=== PATIENT | male | born 1965 | race Caucasian/White ===

== ENCOUNTER 2025-03-31 05:48 | Day surgery (SDC) | payer OTHER ==
[~2025-03-31] VITALS: Ht 175.3 cm; Wt 84.0 kg
[~2025-03-31 05:48] MED LIST: LACTATED RINGER'S 1,000 ML IV SCH
[2025-03-31 06:03] VITALS: BP 132/89
[2025-03-31] MEDS ORDERED: LIDOCAINE HCL 1% 5 ML SDV INJ ONE (07:00)
[2025-03-31] MEDS ORDERED: HEParin SOD (PORCINE) 5,000 UNIT/ML SDV SUB-Q SCH (07:00)
[2025-03-31] MEDS ORDERED: CEFAZOLIN SODIUM 2 GM in SODIUM CHLORIDE 0.9% 100 ML IV SCH (07:00)
[2025-03-31] MEDS ORDERED: IBLOOD GLUCOSE TEST STRIP 1 EA TEST VI PRN ×2 (07:00→09:30)
[2025-03-31] MEDS ORDERED: LIDOCAINE HCL 2% 5 ML SDV ONE (07:05)
[2025-03-31] MEDS ORDERED: LIDOCAINE HCL 1% 30 ML SDV ONE (07:05)
[2025-03-31] MEDS ORDERED: DEXAMETHASONE SOD PHOS 4 MG/ML VIAL ONE (07:05)
[2025-03-31] MEDS ORDERED: KETOROLAC TROMETHAMINE 30 MG/ML VIAL ONE (07:05)
[2025-03-31] MEDS ORDERED: LIDOCAINE HCL 4% 5 ML AMP ONE (07:06)
[2025-03-31] MEDS ORDERED: fentaNYL citrate 100 MCG/2 ML VIAL ONE ×2 (07:09→08:51)
[2025-03-31] MEDS ORDERED: MIDAZOLAM HCL 2 MG/2 ML VIAL ONE (07:10)
[2025-03-31] MEDS ORDERED: SUGAMMADEX SODIUM 200 MG/2 ML ML ONE (07:16)
[2025-03-31] MEDS ORDERED: ROCURONIUM BROMIDE 50 MG/5 ML SYR ONE (07:16)
[2025-03-31] MEDS ORDERED: ACETAMINOPHEN 1,000 MG/100 ML VIAL ONE (07:53)
[2025-03-31] MEDS ORDERED: LACTATED RINGER'S 1,000 ML IV ONE (08:02)
--- NOTE | 2025-03-31 09:25 | NUR ---
03/31/25 0925 Abelardo,Angeline 0917 PT ARRIVED TO PACU ON 6L VIA MASK, WITH ORAL AIRWAY IN PLACE. RESP EVEN AND UNLABORED. SMALL CHIN LIFT USED TO MAINTAIN AIRWAY, PT HEAD MOVED TO THE SIDE AND CHIN LIFT NO LONGER NEEDED.
[2025-03-31] MEDS ORDERED: OXYCODONE/APAP 7.5/325 TAB PO PRN (09:30)
[2025-03-31] MEDS ORDERED: NALOXONE HCL 0.4 MG SYR IV PRN ×2 (09:30)
[2025-03-31] MEDS ORDERED: ACETAMINOPHEN 500 MG TAB PO PRN (09:30)
[2025-03-31] MEDS ORDERED: MOTRIN IB200 MG PO (09:30)
[2025-03-31] MEDS ORDERED: IBUPROFEN 600 MG TAB PO PRN (09:30)
[2025-03-31] MEDS ORDERED: TYLENOL EXTRA500 MG PO (09:30)
[2025-03-31] MEDS ORDERED: LACTATED RINGER'S 1,000 ML IV SCH (09:30)
[2025-03-31] MEDS ORDERED: fentaNYL citrate 50 MCG/ML SDV IV PRN (09:30)
[2025-03-31] MEDS ORDERED: PERCOCET 7.5-31 EACH PO (09:31)
[2025-03-31 09:55] VITALS: BP 140/76
--- NOTE | 2025-03-31 10:13 | NUR ---
0955-PT ARRIVED BACK TO DS ON RA, AAOX3, ANSWERING QUETIONS APPROPRIATELY, AND ABLE TO MAKE HIS NEEDS KNOWN. VS TAKEN. IV SITE ASSESSED. SURGICAL SITE VISUALIZED WITH MOLD BURNER AND REPORT RECIEVED FROM MOLD BURNER. PT REPORTS PAIN 4-5/10 AT SURGICAL SITE. PT REPORTS TOLERABLE AT THIS TIME, BUT GETTING CLOSE TO INTOLERABLE. PT DENIES NAUSEA WHEN ASKED. PTS FRIEND IN ROOM AT BEDSIDE. PT PROVIDED WITH ICE WATER AND APPLESAUCE. PT VERBALIZES URGE TO VOID. PT PROVIDED WITH URINAL. 1005-PT ABLE TO VOID APPROX 500 ML OF CLR, PALE YELLOW URINE. PT TOLERATING PO FOOD AND FLUIDS WELL THUS FAR W/O ISSUES REPORTED OR NOTED. 1013-PT GIVEN PO PAIN MEDS PER EMAR. CALL LIGHT WITHIN PT REACH. BED IN LOW POSITION, WHEELS LOCKED, BILAT RAILS IN PLACE FOR SAFETY.
[2025-03-31 10:58] VITALS: BP 133/88
--- NOTE | 2025-03-31 11:10 | NUR ---
1055-INTO PTS ROOM FOR ROUTINE REASSESSMENT. VS TAKEN. IV SITE ASSESSED AND REMOVED. TIP APPEARS INTACT. PRESSURE DRSG APPLIED WITH GAUZE AND COBAN. SURGICAL SITE VISUALIZED. NO ACUTE CHANGES NOTED FROM INITIAL ASSESSMENT. PT REPORTS IMPROVEMENT IN PAIN AT SURGICAL SITE AND RATES PAIN AT 4/10 WHICH HE REPORTS TO BE TOLERABLE. PT DENIES NAUSEA WHEN ASKED. PT HAS TOLERATED PO FOOD AND FLUIDS W/O ISSUES. PT DRESSING FOR DISCHARGE WITH FRIENDS ASSISTANCE. 1105-PT WITH REPORT OF NEED TO USE RESTROOM. PT EDUCATED ON USE OF HAND FOR COUNTER SUPPORT TO INCISION SITE WITH POSITION CHANGES. PT VERBALIZES AND DEMONSTRATES UNDERSTANDING. PT AMBULATED TO RESTROOM WITH RN SUPERVISION FOR SAFETY. 1110-PT PROVIDED WITH VERBAL AND WRITTEN DISCHARGE EDUCATION. PTS FRIEND PRESENT FOR DISCHARGE EDUCATION. ALL QUESTIONS ANSWERED. HARDCOPY RX GIVEN FOR PAIN MEDICATION. PT VERBALIZES UNDERSTANDING. PTS FRIEND LEFT TO PULL CAR AROUND TO FRONT FOR DISCHARGE.
--- NOTE | 2025-03-31 11:15 | NUR ---
PT DISCHARGED FROM DS TO PASSENGER SIDE OF FRIENDS VEHICLE. PT LEFT WITH ALL PERSONAL BELONGINGS.
[2025-03-31] MEDS ORDERED: SEVOFLURANE 250 ML BTL INH ONE (15:09)
--- NOTE | 2025-03-31 18:26 | OR ---
[facility] [address], [place] [address] Signed DATE OF OPERATION: 03/31/2025 SURGEON: Amber Franco MD PREOPERATIVE DIAGNOSES: 1. Left inguinal hernia (reducible). 2. History of follicular lymphoma of cecum, in remission. POSTOPERATIVE DIAGNOSIS: Left indirect inguinal hernia with attenuation of floor and cord lipoma. PROCEDURES: 1. Repair of left inguinal hernia with implantation of Prolene mesh and excision of hernia sac. 2. Excision of left cord lipoma. ANESTHESIA: General endotracheal; Akilah Malhotra CRNA and local 10 mL of 0.25% Marcaine with epinephrine. INDICATION: This 59-year-old white man is a patient of Suad Sadlivar as well as Dr. Cally Horvath. The patient has been treated in the past for a cecal follicular lymphoma. He has undergone right inguinal hernia repair in [place] in the past. He now has left inguinal hernia, which appears to be reducible. The risk of bleeding, infection, recurrence, and other unforeseen complications were reviewed with him regarding repair of the hernia. He understands and wished to proceed. FINDINGS: Complete attenuation and loss of the external oblique was noted. The cord structures were easily mobilized from the floor. There was a moderate-sized cord lipoma, which was excised. There was a moderate-sized indirect hernia sac also seen, which contained omentum. This was reduced and the hernia sac was secured at its origin and hernia sac amputated and passed for pathology. The floor was attenuated for which implantation of Prolene mesh was undertaken. In the medial aspect of the pubic ramus, there was small amount of bleeding, which was secured with clips. There were no complications. DESCRIPTION OF PROCEDURE: The patient was brought to the operating room, given a general endotracheal anesthetic. Preoperative antibiotic Ancef was given. Sequential compression device stockings were Electronically Signed By: AMBER FRANCO MD 03/31/25 1899 PATIENT NAME: MIRZA ANGELES OPERATIVE REPORT DATE OF : 67 REPORT #: [id number] PHYSICIAN: AMBER FRANCO MD PCP: SUAD SALDIVAR PAC REPORT IS CONFIDENTIAL AND NOT TO BE RELEASED WITHOUT AUTHORIZATION [facility] [address], [place] [address] Signed used and heparin subcutaneously administered. The abdomen was prepared with a chlorhexidine solution and draped sterilely. A transverse incision was made in the groin as a mirror-image to the previous one on the right side. Dissection was carried through the subcutaneous tissue with electrocautery. Corinne layer was incised with electrocautery as well. There was complete attenuation and loss of the external oblique. The cord was mobilized from the floor on that basis, and ultimately encircled with a Bolton drain. Minimal amounts of external oblique, which were attenuated, were incised laterally. The cord was mobilized fully from the floor, noting complete attenuation of the floor of the canal, but the dominant hernia was an indirect one. Hernia sac was dissected free from the cord structures. Divided the cremasteric muscle fibers transversely. The cord was carefully from the hernia sac and once isolated, the hernia sac opened and examined. Within the hernia sac was omentum. This was replaced into the peritoneal cavity and the neck of the hernia sac oversewn with 2-0 silk suture to allow for amputation of redundant hernia sac. The floor was quite attenuated and was incised with electrocautery to allow for implantation of mesh. There was noted to be some bleeding in the pubic ramus immediately, which was ultimately secured with small clips. A segment of Prolene mesh was cut to an elliptical configuration and secured in an underlay technique with interrupted 2-0 Prolene sutures. A defect was cut in the graft to accommodate the cord structures. Terrell was applied to the properitoneal space as well as externally to be thorough as regards to hemostasis. A 10 mL of 0.25% Marcaine with epinephrine was injected locally. As there was no external oblique to successfully cover the cord, Corinne layer was reapproximated over the cord structures with interrupted 2-0 Vicryl. The skin was closed with running subcuticular 3-0 Vicryl. Steri-Strips were applied as was an Acticoat dressing. The patient tolerated the procedure well, was extubated in the operating room, taken to the recovery room in good condition having suffered no complication. Sponge, needle, and instrument counts reported as correct x3. MD DARIO Cedillo/HARIKAL /[id number] cc: Suad Saldivar PA-C Electronically Signed By: AMBER FRANCO MD 03/31/25 1826 PATIENT NAME: MIRZA ANGELES OPERATIVE REPORT DATE OF : 67 REPORT #: [id number] PHYSICIAN: AMBER FRANCO MD PCP: SUAD SALDIVAR PAC REPORT IS CONFIDENTIAL AND NOT TO BE RELEASED WITHOUT AUTHORIZATION [facility] [address] [place] [address] Signed Cally Horvath MD Copies: CALLY HORVATH MD ~ Electronically Signed By: AMBER FRANCO MD 03/31/25 1826 PATIENT NAME: MIRZA ANGELES OPERATIVE REPORT DATE OF : 67 REPORT #: [id number] PHYSICIAN: AMBER FRANCO MD PCP: SUAD SALDIVAR PAC REPORT IS CONFIDENTIAL AND NOT TO BE RELEASED WITHOUT AUTHORIZATION
--- NOTE | 2025-04-04 11:11 | PATH ---
[facility] [address], [place] [address] Signed SPECIMEN(S): A LEFT INGUINAL HERNIA SAC SPECIMEN(S): B LIPOMA OF CORD SPECIMEN SOURCE: A. LEFT INGUINAL HERNIA SAC B. LIPOMA OF CORD CLINICAL HISTORY: Left inguinal hernia FINAL PATHOLOGIC DIAGNOSIS: A. Left inguinal hernia sac: - Benign fibromembranous soft tissue consistent with clinical hernia sac. B. Lipoma of cord: - [place] lobulated adipose tissue consistent with lipoma. [facility] MICROSCOPIC EXAMINATION: Histologic sections of all submitted blocks are examined by light microscopy. These findings, together with the gross examination, support the pathologic diagnosis. GROSS DESCRIPTION: A. The specimen, labeled and designated "Armen, left inguinal hernia sac," is received in formalin and consists of irregular shaped yellow-yates to pink-yates, focally congested fibroadipose tissue fragment that measures 3.3 x 2.5 x 0.7 cm. Sectioning through the specimen is grossly unremarkable. [employer] sections are submitted in (A1). B. The specimen, labeled and designated "Armen, lipoma of cord," is received in formalin and consists of irregular shaped yellow-yates, fibroadipose tissue fragment that measure 4.5 x 2.5 x 1.2 cm. Specimen is inked. Sectioning through the specimen to reveal regular adipose tissue. No abnormalities are grossly identified. [employer] sections are submitted in (B1). JS (under the direct supervision of a pathologist) The Gross Description was prepared using a voice recognition system. The report was reviewed for accuracy; however, sound-alike word errors, addition and/or deletions may occur. If there is any question about this report, please contact Client Services. PATIENT NAME: MIRZA ANGELES PATHOLOGY DATE OF : 67 REPORT #: [id number] PHYSICIAN: ALEX MATA PCP: SUAD SALDIVAR PAC REPORT IS CONFIDENTIAL AND NOT TO BE RELEASED WITHOUT AUTHORIZATION [facility] [address], [place] [address] Signed ADDITIONAL NOTES: Immunohistochemical and/or in situ hybridization studies if performed in this case included appropriate positive controls that reacted as expected. This test was developed and its performance characteristics determined by [facility]. It has not been cleared or approved by the U.S. Food and Drug Administration. The FDA has determined that such clearance or approval is not necessary. This test is used for clinical purposes. It should not be regarded as investigational or for research. [facility] is certified under the Clinical Laboratory Improvement Amendments of 1988 (CLIA) as qualified to perform high complexity clinical laboratory testing. PERFORMING LABORATORY: Technical component was performed by [facility], [address] [place] [id number] (CLIA# [id number]). Professional interpretation was performed by [facility] [place] [facility] - [address] [place] [address] [place] [address] (CLIA#: [id number]). Diagnostician: Chad Villar MD Pathologist Electronically Signed 04/04/2025 Copies: ~ PATIENT NAME: MIRZA ANGELES PATHOLOGY DATE OF : 67 REPORT #: [id number] PHYSICIAN: ALEX MATA PCP: SUAD SALDIVAR PAC REPORT IS CONFIDENTIAL AND NOT TO BE RELEASED WITHOUT AUTHORIZATION
== END 2025-03-31 11:15 | disposition home or self-care (01) ==
LOC: DS 05:48
PROVIDERS: ATTEND Surgery
PROC: 0YU60JZ Supplement Left Inguinal Region with Synthetic Substitute, Open Approach (ICD-10-PCS; principal; 2025-03-31 07:30)
DX: K40.90 Unilateral inguinal hernia, without obstruction or gangrene, not specified as recurrent (principal); D17.6 Benign lipomatous neoplasm of spermatic cord; Z85.72 Personal history of non-Hodgkin lymphomas
CPT/HCPCS: 00830; 88302; 88304; C1781; J0131; J0688; J1100; J1644; J1885; J2003; J2250; J2405; J2704; J3010; J3490; J7121